=== PATIENT | female | born 1985 | race Caucasian/White ===

== ENCOUNTER 2017-01-10 18:04 | Emergency (ER) | payer MEDICAID ==
[~2017-01-10] VITALS: Ht 162.6 cm; Wt 114.4 kg
[2017-01-10 18:06] VITALS: Ht 162.6 cm; Wt 114.4 kg
--- OUTSIDE RECORDS SUMMARY | 2017-01-10 18:08 | XMS REPORT | Continuity of Care Document ---
Author Author [facility] Address Unknown Phone Unavailable Allergies Active Description Code Type Severity Reaction Onset Reported/Identified Relationship to Patient Clinical Status Yes No Known Allergies [id number] Drug Allergy N/A N/A 06/24/2016 Medications Problems Date Dx Coded Attending Type Code Diagnosis Diagnosed By 04/27/2015 Abelardo Reid APRN OT 873.63 04/27/2015 Abelardo Reid APRN OT E928.9 10/16/2015 Tisha White OT K08.8 10/16/2015 Tisha White OT N39.0 10/16/2015 Tisha White OT Z79.891 06/25/2016 Franklin RUIZ, Guero Thomason OT I10 06/25/2016 Franklin RUIZ, Guero Thomason OT K59.00 06/25/2016 Franklin RUIZ, Guero Thomason OT N30.00 10/04/2016 Hema Giang OT J02.0 11/30/2016 Segun AsifSСветлана OT E66.01 11/30/2016 Segun Asif FСветланаSСветлана OT F11.20 11/30/2016 Segun Asif FСветланаSСветлана OT F33.2 11/30/2016 Segun Asif F.SСветлана OT F41.0 11/30/2016 Segun Asif FСветланаSСветлана OT N39.0 11/30/2016 Segun AsifSСветлана OT Z68.41 12/14/2016 TARIQ MANUEL [id number] Laceration w/o foreign body of oth part of head, init encntr 12/14/2016 TARIQ MANUEL [id number] Other specified injuries of head, initial encounter 12/14/2016 TARIQ MANUEL [id number] Contusion of right knee, initial encounter 12/14/2016 TARIQ MANUEL F01735N Abrasion, right knee, initial encounter 12/14/2016 TARIQ MANUEL R7302SO Fall same lev from slip/trip w strike agnst unsp obj, init 12/14/2016 TARIQ MANUEL K31944 Unsp place in single-family (private) house as place 12/14/2016 TARIQ MANUEL Y93G3 Activity, cooking and baking Procedures Results Test Result Range URINE CULTURE - 10/16/15 22:05 Microbiology GROUP A STREP CULTURE - 06/24/16 23:15 Microbiology URINE CULTURE - 06/24/16 23:53 Microbiology ETHANOL, SERUM - 11/23/16 19:00 ETHANOL, SERUM < 3 mg/dL URINALYSIS RFLX MICROSCOPIC UA - 11/23/16 19:15 COLLECTION TYPE VOIDED APPEARANCE Sl Cloudy CLEAR COLOR Yellow PH, URINE 5.0 5.0-8.0 SPECIFIC GRAVITY, URINE 1.020 <1.030 GLUCOSE, URINE Negative mg/dL Negative BLOOD, URINE Moderate Negative KETONES, URINE Negative mg/dL Negative PROTEIN, UA QUALITATIVE Negative mg/dL Negative BILIRUBIN, URINE Negative Negative UROBILINOGEN, URINE <2.0 mg/dL <2.0 LEUKOCYTE ESTERASE, URINE Moderate Negative NITRITE, URINE Negative Negative WBC, URINE 61-100 /hpf 0-5 RBC, URINE 11-15 /hpf 0-5 BACTERIA, URINE 1+ /hpf None seen SQUAMOUS CELLS >30 /lpf 0-5 MUCUS THREADS, URINE 1+ /lpf DRUG SCREEN, URINE - 11/23/16 19:15 AMPHETAMINE SCREEN,URINE NONE DETECTED NONE DETECT BARBITURATES SCREEN,URINE NONE DETECTED NONE DETECT BENZODIAZEPINES SCREEN,URINE NONE DETECTED NONE DETECT CANNABINOID SCREEN, URINE POSITIVE NONE DETECT COCAINE SCREEN, URINE NONE DETECTED NONE DETECT ECSTASY (MDMA) SCRN UR NONE DETECTED NONE DETECT OPIATE SCREEN, URINE NONE DETECTED NONE DETECT THYROID STIMULATING HORMONE 3G - 11/24/16 05:15 THYROID STIMULATING HORMONE 3G 0.33 uIU/ml 0.36-3.74 T3 (TRIIODOTHYRONINE), FREE - 11/24/16 05:15 T3 (TRIIODOTHYRONINE), FREE 2.9 pg/mL 2.2 -4.0 URINE CULTURE - 11/24/16 10:00 Microbiology Encounters ACCT No. Visit Date/Time Discharge Status Pt. Type Provider Facility Loc./Unit Complaint [id number] 11/23/2016 16:41:00 2016 10:57:[facility] [id number] 10/04/2016 19:47:00 2015 20:25:00 DIS Emergency Hema Giang [facility] KCED SORE THROAT [id number] 06/24/2016 21:31:00 2015 01:07:00 DIS Emergency Franklin RUIZ, Guero Thomason [facility] KCED BODY PAIN [id number] 10/16/2015 21:23:00 2014 22:37:00 DIS Emergency [place] [facility]A,DENT[place]/KIDNEY PAIN [id number] 04/28/2015 20:11:00 2014 21:52:00 DIS Emergency Mandi Rodas [facility] RT HIP PAIN/ SWELLING [id number] 04/27/2015 11:38:00 2014 12:03:00 DIS Emergency Abelardo Reid [facility] TOOTH PAIN
--- OUTSIDE RECORDS SUMMARY | 2017-01-10 18:08 | XMS REPORT ---
Author Author GENERATED, SYSTEM Organization Unknown Address Unknown Phone Unavailable Care Team Providers Care Physical Geographer Name Role Phone PP Unavailable Reason For Visit Chief Complaint FALL- INJURY TO FACE Social History Functional Status Vital Signs Results Problems Encounter Diagnosis No relevant problems exist. Encounters Encounter Diagnosis No relevant problems exist. Plan of Care Procedures No relevant procedures performed. Immunizations No immunizations administered or ordered. Hospital Course Hospital Discharge Instructions Allergies, Adverse Reactions, Alerts * Latex Allergy has not been assessed. * IV Contrast Allergy has not been assessed. Medication Medication reconciliation has not been performed.
--- OUTSIDE RECORDS SUMMARY | 2017-01-10 18:08 | XMS REPORT ---
Author Author GENERATED, SYSTEM Organization Unknown Address Unknown Phone Unavailable Care Team Providers Care Systems Manager Name Role Phone PP Unavailable Reason For Visit Chief Complaint TRAUMA Social History Functional Status Vital Signs Results DX Radiology from 12/06/2016 5:15 PMKNEE RIGHT 3 VIEWS History: Fall with right knee pain. Technique: 3 view knee performed. Priors: None. Findings: No acute fractures or subluxations are identified. There is no joint effusion. There is mild medial compartment joint space narrowing consistent with osteoarthritis. Impression: No evidence of acute fracture. Electronically signed by: Malik Tello MD Dictated: 12/07/2016 11:04 Problems Encounter Diagnosis No relevant problems exist. [...]
--- NOTE | 2017-01-10 19:00 | NUR ---
PT INFO PT CURRENTLY PARTICIPATING IN [facility] MED ABUSE. CLONIDINE PATCH RIGHT SHOULDER - STATES FOR ANXIETY REASONS.
--- NOTE | 2017-01-10 19:05 | ERPDOC ---
Departure Disposition Decision Date: Jan 10, 2017 Disposition Decision Time: 19:27 (ARLEEN RAYGOZA APRN) Disposition: 01 DISCHARGED HOME, SELF-CARE Impression Impression (ARLEEN RAYGOZA APRN) Impression: Primary Impression: Breast pain, left Condition: Improved Seen By: Mid-level only (ARLEEN RAYGOZA APRN) Patient Instructions: Breast Self Exam for Women (ED) Problems/Meds/Labs Reviewed?: Yes Medications reviewed and manag: Yes (ARLEEN RAYGOZA APRN) Additional Instructions: I did not find any signs of infection or lumps in your breast when examining you today. I think that your breast pain may be hormonal related since you are midcycle. You may take ndsu-wmd-etnrzqi ibuprofen 800 mg every 8 hours as needed for pain. Follow with your PCP if your symptoms are not improving in the next week, sooner if symptoms are worsening. Follow treatment plan. Follow up care ordered?: Yes Mental Status: Alert, Oriented (ARLEEN RAYGOZA APRN) HPI - General Medical General Chief Complaint: General Stated Complaint: CHEST PAIN Time Seen by Provider: 19:03 Source: patient (ARLEEN RAYGOZA APRN) Time Seen by Provider: 19:03 (KATE SEVILLA MD) HPI - General Medical Initial Comments 31-year-old female presents to ER with complaint of left breast pain that started this afternoon around 3:00. Patient states that pain is intermittent, sharp and radiates up from left nipple up to clavicle. Patient denies that this is chest wall pain or under chest wall. States it is in the tissue of her breast where she feels this pain. States she has had similar breast pain when she had mastitis after giving . Says onset of pain was after waking up from nap. Does admit she was sleeping on left side. Patient denies any fever, chills, known lumps or cyst in breast, or nipple drainage. Patient is midcycle. Patient has not taken anything for pain. Patient is currently at [facility] for narcotic abuse. Pain Scale: Now: 5/10 Associated Symptoms: DENIES: chest pain, cough, denies symptoms, diaphoresis, fever/chills, headaches, loss of appetite, malaise, nausea/vomiting, rash, seizure, shortness of breath, syncope, weakness (ARLEEN RAYGOZA APRN) Allergies: Coded Allergies: No Known Allergies (Unverified , 01/10/17) Past History Past Medical History Metabolic: DENIES: diabetes, hypertension Cardiac: DENIES: angina Respiratory: DENIES: asthma GI: gallbladder disease, DENIES: ulcers Female: UTI, DENIES: renal insufficiency Neurological: DENIES: seizures Musculoskeletal: DENIES: rheumatoid arthritis Psychological: anxiety, depression, drug abuse (SHANELLE RAYGOZAS A HEEL PADDER) Surgical History General: gallbladder (ARLEEN RAYGOZA HEEL PADDER) Family History Family PMH: FOUND: other (noncontributory) (ARLEEN RAYGOZA HEEL PADDER) Social History Housing: other (treatment facility) (ARLEEN RAYGOZA HEEL PADDER) Review of Systems Constitutional Constitutional: DENIES: chills, dizziness, fever, weakness (SHANELLE RAYGOZAS A HEEL PADDER) Eyes General: DENIES: erythema, exudate Lids/Accessories: DENIES: erythema, swelling Vision: DENIES: blurring (SHANELLE RAYGOZAS A HEEL PADDER) ENMT Ears: DENIES: pain Hearing: DENIES: hearing loss Sinuses: DENIES: congestion, rhinorrhea Mouth/Throat: DENIES: sore throat (SHANELLE RAYGOZAS A HEEL PADDER) Cardiovascular Cardiac: DENIES: chest pain, murmur Rhythm/Rate: DENIES: palpitations (SHANELLE RAYGOZAS A HEEL PADDER) Pulmonary Respiratory: DENIES: cough, dyspnea (SHANELLE RAYGOZAS A HEEL PADDER) GI Upper Abdomen: DENIES: nausea, pain, vomiting Lower Abdomen: DENIES: diarrhea, pain (SHANELLE RAYGOZAS A HEEL PADDER) General: DENIES: dysuria, pain (SHANELLE RAYGOZAS A HEEL PADDER) Musculoskeletal General: DENIES: joint pain, pain, tenderness (SHANELLE RAYGOZAS A HEEL PADDER) Integumentary Skin: DENIES: color change, itching, rash (SHANELLE RAYGOZAS A HEEL PADDER) Neurological General: DENIES: ataxia, change in strength, numbness, paralysis/paresis, weakness (SHANELLE RAYGOZAS A HEEL PADDER) Psychiatric Psychiatric: anxiety, depression, DENIES: nervousness (SHANELLE RAYGOZAS A HEEL PADDER) Physical Exam General General Nourishment: well nourished, well developed, adult, obese General Body Habitus: well groomed (SHANELLE RAYGOZAS A HEEL PADDER) Vitals and Pain First Documented Vital Signs Date Time Temp Pulse Resp B/P Pulse Ox O2 Delivery O2 Flow Rate FiO2 01/10/17 18:06 98.2 75 14 126/66 97 Room Air (KATE SEVILLA MD) Vitals and Pain Weight: Kilograms: 114.400 Height (feet): 5 Height (inches): 4.00 Triage Pain Scale: (ARLEEN RAYGOZA APRN) Eyes (brief) Eyes Brief: found: EOMI (ARLEEN RAYGOZA APRN) ENMT (brief) ENMT Brief: NOT FOUND: nasal exudate, nasal swelling (ARLEEN RAYGOZA APRN) Neck (brief) Neck: FOUND: trachea midline, NOT FOUND: adenopathy, thyromegaly (SHANELLE RAYGOZAS [facility] HEEL PADDER) Respiratory (brief) Respiratory: FOUND: clear all martinez, equal bilaterally, symmetrical (ARLEEN RAYGOZA APRN) Respiratory Breasts: FOUND: symmetric, NOT FOUND: dimpling, erythema, mass, retraction, tenderness (no reprodcubile TTP) (ARLEEN RAYGOZA APRN) Cardiovascular (brief) Cardiac: FOUND: regular rate, regular rhythm (ARLEEN RAYGOZA APRN) Musculoskeletal (brief) Musculoskeletal Brief: NOT FOUND: deformity, loss of motion (SHANELLE RAYGOZAS [employer] HEEL PADDER) Integumentary (brief) Integumentary Brief: FOUND: dry, pink, warm (ARLEEN RAYGOZA APRN) Neurologic (brief) Neurological Brief: FOUND: motor-no gross deficits, sensory-no gross deficits, NOT FOUND: ataxia (SHANELLE RAYGOZAS Honorio SHEN) Psychiatric (brief) Psychiatric Brief: FOUND: alert, normal affect, oriented (ARLEEN RAYGOZA APRN ) Differential Diagnoses Considering: Abscess, Cellulitis, Other (mastitis, neoplasm, fibrocystic breast disease) (ARLEEN RAYGOZA APRN) Progress Results/Orders Orders Procedure Category Date Status Time Ketorolac (Toradol) PHA 01/10/17 Complete 19:30 (KATE SEVILLA MD) Medications Current ED Medications Ketorolac Tromethamine (Toradol) 60 mg O ONCE IM Last administered on t 19:36; Start 01/10/17 at 19:30; Stop 01/10/17 at 19:31; Status DC (KATE SEVILLA MD) Progress Progress I discussed with patient that I did not feel any lumps in her breast. Pain may be related to her hormones since she is midcycle. Patient instructed to take 800 mg of ibuprofen every 8 hours for pain, follow-up with PCP if symptoms are not improving. Patient verbalized understanding of treatment plan follow- up and return precautions. Patient reports pain resolved after toradol. (ARLEEN RAYGOZA APRN) ARLEEN RAYGOZA APRN Jan 10, 2017 19:05 KATE SEVILLA MD Jan 11, 2017 01:39
[2017-01-10] MEDS ORDERED: NALT50TA PO (19:07)
[2017-01-10] MEDS ORDERED: METR500T PO (19:07)
[2017-01-10] MEDS ORDERED: ESCI20TA PO (19:07)
[2017-01-10] MEDS ORDERED: CLON1PAT17 TOP (19:07)
[2017-01-10] MEDS ORDERED: ARIP10TA15 PO (19:07)
--- OUTSIDE RECORDS SUMMARY | 2017-01-10 19:16 | XMS REPORT ---
Author Author GENERATED, SYSTEM Organization Unknown Address Unknown Phone Unavailable Care Team Providers Care Pattern Duplicator Name Role Phone PP Unavailable Reason For [...]
--- OUTSIDE RECORDS SUMMARY | 2017-01-10 19:16 | XMS REPORT | Continuity of Care Document ---
Author Author [facility] Address Unknown Phone Unavailable Allergies Active Description Code Type Severity Reaction Onset Reported/Identified Relationship to Patient Clinical Status Yes No Known Allergies [id number] Drug Allergy N/A N/A 06/24/2016 Medications Problems [...] Segun AsifSСветлана OT Z68.41 12/14/2016 TARIQ MANUEL [id number] Laceration w/o foreign body of oth part of head, init encntr 12/14/2016 TARIQ MANUEL [id number] Other specified injuries of head, initial encounter 12/14/2016 TARIQ MANUEL O7424NU Contusion of right knee, initial encounter 12/14/2016 TARIQ MANUEL J07131R Abrasion, right knee, initial encounter 12/14/2016 TARIQ MANUEL [id number] Fall same lev from slip/trip w strike agnst unsp obj, init 12/14/2016 TARIQ MANUEL W66085 Unsp place in single-family (private) house as [...] Status Pt. Type Provider Facility Loc./Unit Complaint [id number] 11/23/2016 16:41:00 2016 10:57:00 [facility] [id number] 10/04/2016 19:47:00 2015 20:25:00 DIS Emergency Hema Giang [facility] KCED SORE THROAT [id number] 06/24/2016 21:31:00 2015 01:07:00 DIS Emergency Franklin RUIZ, Guero Thomason [facility] KCED BODY PAIN [id number] 10/16/2015 21:23:00 2014 22:37:00 DIS Emergency Tisha White [facility] NAUSEA,DENTAL/KIDNEY PAIN [id number] 04/28/2015 20:11:00 2014 21:52:00 DIS Emergency Mandi Rodas [facility] RT HIP PAIN/ SWELLING [id number] 04/27/2015 11:38:00 2014 12:03:00 DIS Emergency Abelardo Reid [facility] TOOTH PAIN
--- OUTSIDE RECORDS SUMMARY | 2017-01-10 19:16 | XMS REPORT ---
Author Author GENERATED, SYSTEM Organization Unknown Address Unknown Phone Unavailable Care Team Providers Care Formula Bottler Name Role Phone PP Unavailable Reason For [...]
[2017-01-10] MEDS ORDERED: KETOROLAC 60mg/2ml INJECTION IM ONE (19:30)
[2017-01-10 20:00] VITALS: BP 101/62; PULSE 66; RESP 14; TEMP 98.2; O2SAT 97
--- NOTE | 2017-01-10 20:00 | NUR ---
DEPART PT GIVEN DI FOR BREAST SELF EXAM IN WOMEN. VERBALIZES UNDERSTANDING OF DI. QUESTIONS ASKED/ANSWERED. DENIES FURTHER QUESTIONS/NEEDS AT THIS TIME. PERSONAL BELONGINGS GATHERED. PT AMBULATED/ESCORTED TO ED EXIT - GAIT STABLE, NO SIGN OF DISTRESS.
== END 2017-01-10 20:00 | disposition home or self-care (01) ==
LOC: ED 18:04
DX: N64.4 Mastodynia (principal)
CPT/HCPCS: 96372; 99283; J1885